=== PATIENT | male | born 1955 | race Caucasian/White ===

== ENCOUNTER 2021-10-22 06:02 | Day surgery (SDC) | payer OTHER, SELFPAY ==
[~2021-10-22] VITALS: Ht 160 cm; Wt 60.8 kg
[2021-10-22] MEDS ORDERED: diphenhydrAMINE 50 MG/ML VIAL ONE (07:10)
[2021-10-22] MEDS ORDERED: MIDAZOLAM 5 MG/5 ML VIAL ONE (07:10)
[2021-10-22] MEDS ORDERED: fentaNYL citrate 0.05 MG/ML VIAL ONE (07:10)
[2021-10-22] MEDS ORDERED: LIDOCAINE 2% 100 MG/5 ML UJET TP ONE (07:11)
[2021-10-22] MEDS ORDERED: fentaNYL citrate 0.05 MG/ML VIAL IVP ONE (13:10)
[2021-10-22] MEDS ORDERED: MIDAZOLAM 2 MG/2 ML VIAL IVP ONE (13:10)
== END 2021-10-22 08:33 | disposition home or self-care (01) ==
LOC: MDS 06:02 → MMU 06:03 → MDS 08:33
PROVIDERS: ATTEND Internal Medicine Gastroenterology
DX: K59.00 Constipation, unspecified (principal); K21.9 Gastro-esophageal reflux disease without esophagitis; K64.8 Other hemorrhoids; Z79.899 Other long term (current) drug therapy; Z20.822 Contact with and (suspected) exposure to COVID-19
CPT/HCPCS: 43239; 45380; 87426; J2250; J3010; J1200